=== PATIENT | female | born 1940 ===

== ENCOUNTER → 2024-12-25 | Emergency (ER) | payer OTHER ==
[~2024-12-25] VITALS: Ht 152.4 cm; Wt 49.9 kg
[~2024-12-25] MED LIST: ACETAMINOPHEN 500 MG GEL..CAP PO ONE; ACETAMINOPHEN 500 MG GEL..CAP PO STA; COZAAR25 MG PO; DEXAMETHASONE SODIUM PHOSPHATE 4 MG/ML VIAL IM STA; DEXAMETHASONE SODIUM PHOSPHATE 4 MG/ML VIAL ONE; METFORMIN HCL500 M3 PO
[2024-12-25 16:27] VITALS: BP 110/70; O2SAT 99
== END | disposition home or self-care (01) ==
LOC: EDBD 11:30 → ER 11:30
DX: G89.11 Acute pain due to trauma (principal); M54.2 Cervicalgia; I10 Essential (primary) hypertension; E11.9 Type 2 diabetes mellitus without complications; Z79.84 Long term (current) use of oral hypoglycemic drugs; Z88.0 Allergy status to penicillin
CPT/HCPCS: 70450; 72125; 73522; 96372; 99284; J1100